=== PATIENT | female | born 1970 | race African-American/Black ===

== ENCOUNTER 2016-10-01 13:56 | Emergency (ER) | payer OTHER ==
--- NOTE | ~2016-10-01 | CR195 ---
[facility] A Service of [facility] & [facility] RADIOLOGY TEXT RESULTS PATIENT: MAMI MITCHELL LOCATION: [facility] : 66 UNIT #: [id number] AGE: [address]: Jennifer Leslie SEX: F ORDER DR: [id number] [facility] [address] [place], [place] [address] [id number] E MR#: [id number] Acc #: [id number] NAME: MAMI MITCHELL : 1970 SEX: F STUDY DATE/TIME: 10/01/2016 14:28 UNIT: [facility] ROOM: STUDY DESCRIPTION: CR Neck Soft Tissue Attending Physician: Jennifer Leslie Pa-C Ordering Physician: Ed Chris Garces M.D. Primary Care Physician: George Little M.D. MEDICAL IMAGING REPORT This report is preliminary unless electronic signature is present EXAM AP and lateral neck for soft tissue detail. HISTORY Burning and choking sensation in the throat, onset this morning. TECHNIQUE AP and lateral views of the neck were obtained. FINDINGS Anterior osteophytes are seen at C4-5, C5-6, and C6-7. No prevertebral soft tissue swelling is seen. The epiglottis is not enlarged and no radiodense foreign bodies are seen. The tracheal air shadow is unremarkable. IMPRESSION Negative except for moderate sized anterior osteophytes at the mid cervical levels. Dictated by... Brandin Merino M.D. THIS IS AN ELECTRONICALLY VERIFIED REPORT Brandin Merino M.D. at 10/01/2016 4:42 PM DAVID/leydi TD: 10/01/2016 14:58 JOB #: [id number] MEDICAL IMAGING REPORT Page 1 of 1 COPY
[~2016-10-01 13:56] MED LIST: ACYCLOVIR PO; AMOXICILLIN PO; DOXYCYCLINE PO; FLEXERIL PO; FLEXERIL10 MG PO; IBUPROFEN PO; KETOPROFEN PO; LITHIUM PO; LOC; MEDROL PO; NAPROSYN500 MG PO; OXYIR5 MG; ROBITUSSIN-DM120 ML PO; ULTRAM PO
== END 2016-10-01 15:00 | disposition home or self-care (01) ==
LOC: CFTX 13:56 → CED 13:56 → CFTX 14:46
DX: R13.10 Dysphagia, unspecified (principal); I10 Essential (primary) hypertension; Z86.19 Personal history of other infectious and parasitic diseases; F17.200 Nicotine dependence, unspecified, uncomplicated
CPT/HCPCS: 70360; 87651; 99283

== ENCOUNTER → 2016-10-13 | Outpatient (CLI) | payer OTHER ==
--- NOTE | ~2016-10-13 | US5 ---
[facility] A Service of [facility] RADIOLOGY TEXT RESULTS PATIENT: MAMI MITCHELL LOCATION: [facility] : 66 UNIT #: [id number] AGE: [address]: JAZZY BERMEO SEX: F ORDER DR: [id number] [address] [address] [id number] O MR#: [id number] Acc #: [id number] NAME: MAMI MITCHELL : 1970 SEX: F STUDY DATE/TIME: 10/13/2016 8:34 UNIT: [facility] ROOM: STUDY DESCRIPTION: US Abdominal Complete Attending Physician: Jazzy Bermeo Aprn Ordering Physician: Physician Non-Staff Primary Care Physician: George Little M.D. MEDICAL IMAGING REPORT This report is preliminary unless electronic signature is present EXAM Abdominal ultrasound INDICATIONS Hepatitis C. Observation for cirrhosis and hepatocellular carcinoma. PROCEDURE Paiz-scale and Doppler imaging of the abdomen COMPARISON 09/18/2014 FINDINGS Visualized portions of the pancreas are unremarkable. The liver measures 17 cm. Liver is not frankly cirrhotic in morphology. No visible liver mass on submitted images. Unremarkable gallbladder. Right kidney measures 11 cm. Common duct measures 4-5 mm. The visualized portions of the abdominal aorta and inferior vena cava unremarkable. Right kidney measures 10 cm. Spleen measures 7.5 cm. IMPRESSION Liver is not frankly cirrhotic by ultrasound. No visible liver mass on submitted images. Spleen normal in size. Dictated by... Crescencio Nuno M.D. THIS IS AN ELECTRONICALLY VERIFIED REPORT Crescencio Nuno M.D. at 10/14/2016 8:27 AM ANTHONY/cash TD: 10/13/2016 16:34 JOB #: [id number] [facility] A Service of [facility] RADIOLOGY TEXT RESULTS PATIENT: MAMI MITCHELL LOCATION: [facility] : 66 UNIT #: [id number] AGE: [address]: JAZZY BERMEO SEX: F ORDER DR: MEDICAL IMAGING REPORT Page 1 of 1 COPY
== END | disposition home or self-care (01) ==
LOC: CWCC 08:00
DX: B18.2 Chronic viral hepatitis C (principal)
CPT/HCPCS: 76700